=== PATIENT | female | born 1995 | race African-American/Black ===

== ENCOUNTER 2017-11-12 15:19 | Emergency (ER) | payer MEDICAID ==
[~2017-11-12] VITALS: Ht 154.9 cm; Wt 52.2 kg
[2017-11-12 15:36] VITALS: BP 119/58; Ht 154.9 cm; Wt 52.2 kg
== END 2017-11-12 17:50 | disposition home or self-care (01) ==
LOC: ED 15:19
DX: S29.012A Strain of muscle and tendon of back wall of thorax, initial encounter (principal); X58.XXXA Exposure to other specified factors, initial encounter; Y93.89 Activity, other specified; Y99.8 Other external cause status; Y92.89 Other specified places as the place of occurrence of the external cause
CPT/HCPCS: 72072; J1885